=== PATIENT | male | born 1955 ===

== ENCOUNTER 2023-06-05 18:18 | Emergency (ER) | payer OTHER ==
[~2023-06-05] VITALS: Ht 175.3 cm; Wt 63.5 kg
[2023-06-05 18:53] LABS: ABG BASE EXCESS 0.5 mmol/L (-2.0-2.0); ABG HCO3 26.1 mmol/L (22.0-26.0); ABG PCO2 45.8 mmHg (35.0-48.0); ABG PH 7.374 (7.340-7.440); ABG PO2 84.9 mmHg (75.0-100.0); ABG SITE LEFT RADIAL; AaDO2 96.1 mmHg; COHb 1.9 % (0.0-3.9); MetHb 0.4 % (0.0-1.5); O2Hb 93.5 % (94.0-97.0)
[2023-06-05 19:26] LABS: CALCIUM 8.8 mg/dL (8.5-10.1); CARBON DIOXIDE 29 mmol/L (21-32); CHLORIDE 106 mmol/L (98-107); CREATININE 0.9 mg/dL (0.6-1.3); GLUCOSE 170 mg/dL (74-106); POTASSIUM 3.9 mmol/L (3.5-5.1); SODIUM SERUM 143 mmol/L (136-145); UREA NITROGEN, BLOOD 28 mg/dL (7-18)
[2023-06-05] MEDS ORDERED: MEMA10TA PO (19:29)
[2023-06-05] MEDS ORDERED: ATOR40TA PO (19:29)
[2023-06-05] MEDS ORDERED: DOCU-141 PO (19:29)
[2023-06-05] MEDS ORDERED: VANC250C12 IV (19:29)
[2023-06-05] MEDS ORDERED: NA P133E RC (19:29)
[2023-06-05] MEDS ORDERED: ZINC220T3 PO (19:29)
[2023-06-05] MEDS ORDERED: BISA10SU61 RC (19:29)
[2023-06-05] MEDS ORDERED: MIRT7.5T10 PO (19:29)
[2023-06-05] MEDS ORDERED: GLYC488L PO (19:29)
[2023-06-05] MEDS ORDERED: ASPI-495 PO (19:29)
[2023-06-05] MEDS ORDERED: DONE10TA44 PO (19:29)
[2023-06-05] MEDS ORDERED: ERGO2000 PO (19:29)
[2023-06-05] MEDS ORDERED: SENN-261 PO (19:29)
[2023-06-05] MEDS ORDERED: CLOP75TA15 PO (19:29)
[2023-06-05] MEDS ORDERED: ERTA1VIA4 IJ (19:29)
[2023-06-05] MEDS ORDERED: MAGN400O6 PO (19:29)
[2023-06-05] MEDS ORDERED: ACET325T53 PO (19:29)
[2023-06-05] MEDS ORDERED: MULT-594 PO (19:29)
[2023-06-05] MEDS ORDERED: ASCO500C18 PO (19:29)
[2023-06-05 19:35] LABS: BASOPHILS % (AUTO) 0.7 % (0.0-2.0); DIFFERENTIAL COMMENT 0; EOSINOPHILS # (AUTO) 0.1 K/uL (0.0-0.7); EOSINOPHILS % (AUTO) 4.1 % (0.0-7.0); HEMATOCRIT 35.9 % (36.7-47.1); HEMOGLOBIN 11.9 g/dL (12.5-16.3); LYMPHOCYTES # (AUTO) 0.5 K/uL (0.8-4.8); LYMPHOCYTES % (AUTO) 39.5 % (20.5-51.5); MEAN CORPUSCULAR HEMOGLOBIN 30.4 uug (23.8-33.4); MEAN CORPUSCULAR HGB CONC 33 g/dL (32.5-36.3); MEAN CORPUSCULAR VOLUME 91.9 fL (73.0-96.2); MONOCYTES # (AUTO) 0.6 K/uL (0.1-1.30); MONOCYTES % (AUTO) 41.2 % (0.0-11.0); NEUTROPHILS # (AUTO) 0.2 K/uL (1.8-8.9); NEUTROPHILS % (AUTO) 14.5 % (38.5-71.5); PLATELET COUNT (AUTO) 262 K/uL (152-348); RED CELL DISTRIBUTION WIDTH 15.7 % (12.1-16.2)
[2023-06-05 19:40] LABS: WHITE BLOOD COUNT (AUTO) 1.4 K/uL (3.6-10.2)
[2023-06-05 19:49] LABS: ALANINE AMINOTRANSFERASE 39 U/L (16-63); ALBUMIN 2.9 g/dL (3.4-5.0); ALKALINE PHOSPHATASE 109 U/L (50-136); ASPARTATE AMINOTRANSFERASE 31 U/L (15-37); BILIRUBIN,DIRECT 0.1 mg/dL (0.0-0.2); BILIRUBIN,TOTAL 0.4 mg/dL (0.2-1.0); NT-PRO BNP 104 pg/mL (0-125); TOTAL PROTEIN, SERUM 7.5 g/dL (6.4-8.2)
[2023-06-05 20:14] LABS: NEUTROPHILS % (MANUAL) 20 % (42-75)
[2023-06-05 20:15] LABS: BASOPHILS % (MANUAL) 1 % (0-2); EOSINOPHILS % (MANUAL) 4 % (0-8); LYMPHOCYTES % (MANUAL) 40 % (20-40); MONOCYTES % (MANUAL) 35 % (2-10)
[2023-06-05] MEDS: IV NORMAL SALINE 500 ML BAG IV ONE (21:00)
[2023-06-05] MEDS ORDERED: IMIPENEM/CILASTATIN SODIUM 1,000 MG in IV NORMAL SALINE 250 ML IV ONE (23:15)
[2023-06-05] MEDS: IV NORMAL SALINE 1000 ML BAG IV ONE (23:30)
[2023-06-05] MEDS ORDERED: CLINDAMYCIN 600 MG PIGGYBACK**ER OMNI IV ONE (23:38)
[2023-06-05] MEDS: CLINDAMYCIN PHOSPHATE IV 600 MG in IV DEXTROSE 5% 100 ML IV ONE (23:40)
[2023-06-06] MEDS ORDERED: levoFLOXacin 500 MG/D5W 100 ML ONE (00:38)
[2023-06-06] MEDS: levoFLOXacin 500 MG/D5W 100ML PIGGYBACK IV ONE (00:40)
[2023-06-06 04:00] VITALS: O2SAT 98
== END 2023-06-06 04:30 | disposition short-term general hospital (02) ==
LOC: ER 18:20
DX: L89.894 Pressure ulcer of other site, stage 4 (principal); D70.9 Neutropenia, unspecified; J69.0 Pneumonitis due to inhalation of food and vomit; D64.9 Anemia, unspecified; E78.5 Hyperlipidemia, unspecified; F03.90 Unspecified dementia, unspecified severity, without behavioral disturbance, psychotic disturbance, mood disturbance, and anxiety; J44.9 Chronic obstructive pulmonary disease, unspecified; Z79.899 Other long term (current) drug therapy; Z20.822 Contact with and (suspected) exposure to COVID-19
CPT/HCPCS: 99285; 96365; 71045; 96361; 87426; 87804 ×2; 80076; 80048; 83880; 85025; 87040 ×2; 84484; 36415; 93005; 36600; 96367; 85007; J3490 ×2; J0743; J7040 ×2; J1956; 70030-TC; A4606; A4663